=== PATIENT | female | born 1960 | race Caucasian/White ===

== ENCOUNTER 2019-03-23 08:10 | Day surgery (SDC) | payer OTHER, SELFPAY ==
[2019-03-20 08:11] VITALS: BMI 34.3
[2019-03-23] VITALS (12 sets, daily range): BP systolic 104–141; BP diastolic 56–73; PULSE 66–74; RESP 11–25; TEMP 36–36.6; O2SAT 92–98; BMI 34.3
--- NOTE | 2019-03-23 | PATH_ITS ---
[facility] Accession Number: [id number] . 01 Material submitted: . abdomen - ABDOMINAL WALL MASS . 01 Clinical history: . PATIENT IS DIABETIC . 01 Diagnosis: Abdominal Wall Mass, Excision: Subcutaneous deposits of amorphous acellular eosinophilic material, consistent with amyloid, see microscopic description. Negative for malignancy. MRV 03/27/2019 1721 Local . 01 Comment: Results were called to Dr. Nely Oswald's RN, on 03/27/2019 at 12:55 p.m. . As part of ongoing quality control microbiology supervisor, selected slides were reviewed by Dr. Daisy Gillis, who agrees with the interpretation. . 01 Electronically signed: . Indio Morrow MD, Pathologist NPI- [id number] . 01 Gross description: . Received in formalin, labeled abdominal wall mass, is a reyna-yellow rubbery fatty mass (14.5 x 9.8 x 4.5 cm) with overlying skin (10.7 x 6.5 cm). The mass cut surface is lobular and focally pale yellow and spongy adjacent to the skin. The skin is reyna-white with diffuse stretchmarks. The resection margin is inked black. [employer] tissue is submitted in cassettes A1-A9. ([id number]) /V 03/24/2019 1256 Local . 01 Microscopic: . Microscopic examination of the abdominal wall mass reveals extensive deposits within the subcutaneous tissue as well as around the blood vessels, of amorphous acellular eosinophilic material. There is multinucleated foreign body-type giant cell reaction around this material and rare aggregates of lymphocytes. Congo red special stain is performed (to support amyloid) and shows apple-green birefringence under polarized light. This result along with the morphology supports the diagnosis of amyloidosis. . There is no evidence of malignancy. . Further workup with subtyping of amyloid can be performed upon clinical request. . 01 Pathologist provided ICD-10: E85.9 . 01 CPT . 379616, [id number] Performed at: [address] [facility] [address], [place], [place] [id number] MD Jose L Watt MD Phone: [phone]
[2019-03-23] MEDS: LACTATED RINGERS 1,000 ML 42 ML IV ×2 (08:49→11:10)
[2019-03-23] MEDS: INSULIN REGULAR 100 UNIT/ML 3 ML VIAL 6 UNIT IV (09:01)
[2019-03-23] MEDS: INSULIN REGULAR 100 UNIT/ML 3 ML VIAL IV (09:59)
--- NOTE | 2019-03-23 10:11 | PM.PREOP ---
Pre-operative Note Interval Note History & Physical reviewed/Exam performed by Physician: Yes Changes to H&P: No H&P completed within 30 days and has changed as indicated here:: Glucose elevated. Has been given IV insulin.
[2019-03-23] MEDS: CEFAZOLIN 2 GM/100 ML FROZ.PIGGY IV (10:41)
[2019-03-23] MEDS: CEFAZOLIN 1 GM/50 ML FROZ.PIGGY IV (10:41)
--- NOTE | 2019-03-23 10:47 | SUR.OPER ---
Supine on padded OR bed, head on pillow, arms secured on padded arm boards at <90 degrees abduction, legs uncrossed, safety belt at thigh, tape over blanket over lower legs.
[2019-03-23] MEDS: BUPIVACAINE 0.5% (PF) VIAL 30 ML INJ (10:51)
--- NOTE | 2019-03-23 11:47 | PM.OP.1 ---
Operative Date/Time/Diagnoses Date of procedure: 03/23/19 Time of procedure: 11:39 Pre-op diagnosis: Abdominal wall mass Post-op diagnosis: same Procedure & Clinicians Procedure: Excision abdominal wall mass 14 cm in diameter with multilayer closure Same procedure as scheduled: Yes Indications: Large mass with symptoms abdominal wall. Imaging reveals this to be a mass in the subcu and not related to any hernia. Surgeon: Asher Mckay Click Yes if Unassisted: Yes Anesthesia Type: General Operative Notes Findings: Large mass appeared to be fatty in nature Closure Type: primary Specimen(s): other (Mass) Estimated Blood Loss (mL): 30 Blood products transfused: none Procedure in detail: The patient is placed supine on the operating room table and underwent general LMA anesthesia. She was prepped and draped in the usual fashion. Local anesthetic was infiltrated in field block fashion around this large mass. An elliptical incision was made overlying it. This is made transversely because of the mass was wider than longer. It was carried into the subcu. Using cautery the mass was excised. Was quite large when all the way down to the fascia. Meticulous hemostasis was achieved with cautery. The abdominal wall was closed in multiple layers. Deep subcu fat was closed with 2 0 Vicryl. Middle subcu fat was closed with the same material and a 3 0 Vicryl was used to close the fat under the dermis. The dermis was reapproximated with interrupted 4 0 Vicryl. The skin was closed with a running 3 0 nylon. Dressing was applied and the patient was awakened extubated and taken recovery room in good condition. There were no apparent complications. Complications: none Post-operative Condition: stable Disposition: PACU
[2019-03-23] MEDS: METFORMIN XR 500 MG TABLET 1000 MG PO (11:50)
--- NOTE | 2019-03-23 11:51 | SUR.PHASEI ---
verbal report of glucose to Dr. Randall ordered Metfomrin PO for patient now, given as ordered.
[2019-03-23] MEDS: HYDROCODONE/ACET 5/325 TABLET 1 TAB PO (13:09)
--- NOTE | 2019-03-23 19:20 | SUR.PHASEII ---
1309 late entry Pt. beginning to notice an increase in the incisional pain. Desired med: given after crackers and water. Pt. is dressed, stable, dressing CDI, ready for discharge. No questions/concerns. Pleasant, no nausea, no light-headedness.
== END 2019-03-23 13:12 | disposition home or self-care (01) ==
PROVIDERS: PCP Internal Medicine; Visit Provider Specialist
PROC: (CPT 22903; principal; 2019-03-23 09:45)
DX: E85.9 Amyloidosis, unspecified (principal); E11.9 Type 2 diabetes mellitus without complications; Z79.4 Long term (current) use of insulin; I10 Essential (primary) hypertension; E78.5 Hyperlipidemia, unspecified; D50.9 Iron deficiency anemia, unspecified; E66.9 Obesity, unspecified; Z68.38 Body mass index [BMI] 38.0-38.9, adult
CPT/HCPCS: 22903; J0690; J2405; J2704; J3010

== ENCOUNTER → 2019-04-16 13:48 | Outpatient (CLI) | payer OTHER, SELFPAY ==
--- NOTE | 2019-04-16 | DI.CT.S_ITS ---
PROCEDURE: CT CHEST WO CON INDICATIONS: Solitary pulmonary nodule TECHNIQUE: Noncontrast 2.0-2.5 mm thick sections acquired from the pulmonary apices to the posterior costophrenic angles. 7 mm thick axial MIP and 5 mm coronal and sagittal reformats were then acquired. A low radiation dose technique was utilized. COMPARISON: CT abdomen and pelvis 10/23/2018. FINDINGS: Image quality: Diagnostic, given the low radiation dose technique. Lungs and pleura: A few scattered pulmonary nodules. For example: -Right middle lobe 7 mm mean diameter, (3/163), previously 7 mm. -Left lower lobe measuring 6 x 6 mm, (3/23), previously 5 x 5 mm. -Left lower lobe juxtapleural measuring 4 mm, (3/206), previously 3 mm. A few additional pulmonary nodules measuring 3 mm or less. No new pulmonary nodule identified. A few calcified granuloma. No acute airspace opacity. No mass. Central airways are clear. Mediastinum: Heart size is normal. No pericardial effusion. No mediastinal adenopathy by size criteria. Thoracic aorta and central pulmonary arteries are normal in size. Esophagus is normal in caliber. No hiatal hernia. Bones and chest wall: No suspicious bony lesions. No vertebral body compression fractures. No axillary or supraclavicular adenopathy by size criteria. Subcentimeter hypodense right thyroid nodule, (2/1). A few punctate calcifications in the left thyroid gland. Abdomen: Visualized upper abdomen solid organs and bowel loops appear normal in the absence of contrast. Gallbladder is surgically absent. IMPRESSION: 1. Stable right middle lobe pulmonary nodule measuring 7 mm mean diameter. 2. Stable left lower lobe pulmonary nodule measuring [address] is recommended in 12 months. 3. Small right thyroid nodule and punctate left calcifications which may be associated with a thyroid nodule. Dedicated thyroid ultrasound should be considered. Fleischner Society criteria for SOLID lung nodule followup. Nodule size (mm)Low-risk patientHigh-risk patient<6 (single or multiple)No routine followup.Optional CT at 12 months. 6-8 (single or multiple)CT at 6-12 months, then optional CT at 18-24 mo.CT at 6-12 months, then CT at 18-24 months. >8 (single)CT at 3 months, PET-CT, or biopsy. Same as for low-risk pts. >8 (multiple)CT at 3-6 months, then optional CT at 18-24 mo.CT at 3-6 months, then CT at 18-24 months. Fleischner Society criteria for SUB-SOLID lung nodule followup. Solitary pure ground-glass nodules<6 mm (ground glass or part solid)No followup needed. 6 mm or larger (ground glass)CT at 6-12 months to confirm persistence, then CT every 2 years until 5 years.6 mm or larger (part solid)CT at 3-6 months to confirm persistence, then annual CT until 5 years if unchanged and solid component remains <6 mm. Multiple sub-solid nodules<6 mmCT at 3-6 months, then CT consider at 2 & 4 years for high risk patients. [address] at 3-6 months. Subsequent management based on most suspicious lesions. Recommendations do not apply to lung cancer screening, patients with immunosuppression, or patients with known primary cancer. Dictated by: Octavio River M.D. on 04/16/2019 at 15:07 Approved by: Octavio River M.D. on 04/16/2019 at 15:24
== END ==
PROVIDERS: PCP Internal Medicine; Visit Provider Internal Medicine
DX: R91.8 Other nonspecific abnormal finding of lung field (principal); E04.1 Nontoxic single thyroid nodule; Z90.49 Acquired absence of other specified parts of digestive tract
CPT/HCPCS: 71250

== ENCOUNTER → 2019-12-25 14:14 | Outpatient (CLI) | payer OTHER, SELFPAY ==
--- NOTE | 2019-12-25 | DI.CT.S_ITS ---
PROCEDURE: CT CHEST WO CON INDICATIONS: Solitary pulmonary nodule TECHNIQUE: Noncontrast 5 mm thick sections acquired from the pulmonary apices to the posterior costophrenic angles. 1 mm lung window, 5 mm thick coronal and sagittal and 7 mm axial MIP reformats were then acquired. For radiation dose reduction, the following was used: automated exposure control, adjustment of mA and/or kV according to patient size. COMPARISON: [facility], CT, CT CHEST WO CON, 04/16/2019, 14:09. FINDINGS: Image quality: Excellent. Lungs and pleura: No acute consolidation. Sub-5 mm multiple pulmonary nodules involving the superior segment of the right lower lobe and the right upper lobe appear grossly unchanged 6-7 mm right middle lobe nodule also unchanged. There is also a 5 mm nodules in the left lung base which is unchanged image 197/3. No pleural effusions or pneumothorax. Central and peripheral airways are patent and normal in caliber. Mediastinum: Heart size is normal. No pericardial effusion. No mediastinal adenopathy by size criteria. Thoracic aorta and central pulmonary arteries are normal in size. Esophagus is normal in caliber. No hiatal hernia. Bones and chest wall: No suspicious bony lesions. No vertebral body compression fractures. No axillary or supraclavicular adenopathy by size criteria. Abdomen: Visualized upper abdominal solid organs and bowel loops appear normal in the absence of contrast. IMPRESSION: Overall, grossly unchanged appearance of multiple pulmonary nodules measuring up to 6-7 mm since 04/16/19. Although encouraging, recommend continued surveillance for definitive assessment with followup chest CT in one year to exclude neoplasm/metastatic disease. Dictated by: Bobby Coronado M.D. on 12/25/2019 at 17:00 Approved by: Bobby Coronado M.D. on 12/25/2019 at 17:07
== END ==
PROVIDERS: PCP Internal Medicine; Referring Provider Internal Medicine; Visit Provider Internal Medicine
DX: R91.8 Other nonspecific abnormal finding of lung field (principal)
CPT/HCPCS: 71250

== ENCOUNTER → 2020-03-24 15:40 | Oncology outpatient (ONC) | payer OTHER, SELFPAY ==
[2019-06-01 10:21] VITALS: BP 146/73; PULSE 72; RESP 20; TEMP 36.8; O2SAT 95
--- NOTE | 2019-06-01 10:30 | ONC.CONS ---
History of Present Illness - Data of Consult Patient: new to practice Consult date: 06/01/19 Requesting Physician: Juanito Vera MD Primary Care Provider: Juanito Vera MD - Consult Narrative Reason for consult: Amyloidosis Narrative: Isa Gray is a 58 year old female. Patient has history of diabetes requiring insulin injection. About in 2017, she noticed a lump at the site of her insulin injection. She thought that the lump might be related to the insulin injection at the time. However the lump continued to grow and has gotten bigger and bigger. She said that the lump was located in the right lower abdomen below the umbilicus. She described the lump the size of a golf ball, was fluidy with a hard center, but no tenderness. She felt that the lump was in a location that is very inconvenient. She bumped multiple times. In Oct 2018, she bumped the site on a sharp edge of furniture and developed ulceration and drainage. She presented to [facility] ER where it was incised and drained. According to patient it was felt that there was something underneath. On 03/23/2019, patient underwent excision of the abdominal wall mass by Dr. Mckay. The mass measured 14 cm in diameter. Surprisingly, the pathology showed subcutaneous deposits of amorphous acellular eosinophilic material consistent with amyloid. Congo red special stain was performed and showed apple-green birefringence under the polarized light supporting the diagnosis of amyloidosis. The pathology was negative for malignancy. The patient therefore was referred to Hematology Oncology for further evaluation of amyloidosis. Patient herself denies any other lumps. She has kind of sluggish energy level. She was worried about the new diagnosis of amyloid. She reports no shortness of breath, no chest pain, no nausea, no vomiting, no diarrhea and no constipation. Her weight has been stable. No apparent leg swelling. CC: Malena Maldonado MD Patient reports pain?: No Home Medications and Allergies Home Medications Medication Instructions Recorded Confirmed Type amlodipine 10 mg tablet 10 mg PO DAILY 02/24/19 06/01/19 History carvedilol 25 mg tablet 37.5 mg PO BID 02/24/19 06/01/19 History fenofibrate nanocrystallized 145 145 mg PO QPM 02/24/19 06/01/19 History mg tablet furosemide 40 mg tablet 40 mg PO BID 02/24/19 06/01/19 History insulin aspart U-100 100 unit/mL 5 - 15 unit SUBCUT TID ml 02/24/19 06/01/19 History (3 mL) subcutaneous pen insulin degludec 100 unit/mL (3 55 unit SUBCUT BID ml 02/24/19 06/01/19 History mL) subcutaneous pen lisinopril 40 mg tablet 40 mg PO DAILY 02/24/19 06/01/19 History metformin 1,000 mg tablet,extended 1,000 mg PO BID 02/24/19 06/01/19 History release 24hr multivitamin with iron 1 tab PO DAILY 02/24/19 06/01/19 History niacin 500 mg tablet,extended 1,000 mg PO BEDTIME 02/24/19 06/01/19 History release 24 hr potassium chloride 20 mEq 20 meq PO TID 02/24/19 06/01/19 History tablet,extended release simvastatin 40 mg tablet 40 mg PO BEDTIME 02/24/19 06/01/19 History ferrous sulfate [iron] 325 mg PO DAILY 06/01/19 06/01/19 History Allergies Allergy/AdvReac Type Severity Reaction Status Date / Time No Known Drug Allergies Allergy Verified 04/09/19 15:32 Medical History - Medical, Surgical, Family History Medical History: Medical History (Last Updated 03/20/19 @ 08:23 by Jocelyn Pedro RN) Amenorrhea Anemia Diabetes Heart murmur HTN (hypertension) Hyperlipidemia Iron deficiency anemia Obesity Sinus drainage Surgical History: Surgical History (Last Updated 03/20/19 @ 08:23 by Jocelyn Pedro RN) Hx of appendectomy Onset Date: ~1987 Hx of cholecystectomy Onset Date: ~1987 Hx of tonsillectomy Onset Date: ~1972 Family History: Family History (Last Updated 06/01/19 @ 10:53 by Malena Maldonado MD) Father Heart disease Hypertension Cancer Mother Gallstones - Social History Smoking Status: Never smoker Substance Use Type: does not use Alcohol Intake: current (occasionally, once every 6 months) Review of Systems - Patient Self-Reported Symptoms SR Constitution: Night Sweats SR respiratory issues: Mucous SR Gastrointestinal issues: Heartburn SR Musculoskeletal issues: Cold hands or feet SR Hematologic issues: Bleeding/bruising SR Endocrine issues: Hot flashes All systems PM: reviewed and no additional remarkable complaints except as stated Exam Vital signs: Last Vital Signs Temp 98.3 F 11/25/19 10:21 Pulse 72 06/01/19 10:21 Resp 20 06/01/19 10:21 BP 146/73 H 06/01/19 10:21 Pulse Ox 95 06/01/19 10:21 - Constitutional positive no acute distress, positive morbidly obese, positive cooperative - Routine HEENT Exam Head: Present: normocephalic, atraumatic Eye: Present: EOMI, PERRL, normal accommodation. Absent: conjunctival icterus ENT: Present: mucous membranes moist - Routine Neck Exam Present: supple. Absent: lymphadenopathy, thyromegaly - Routine Chest/Breast/Axilla Exam Chest wall exam standard: Absent: tenderness Axillae: Absent: lymphadenopathy - Routine Respiratory Exam Present: Clear to auscultation bilaterally. Absent: wheezes - Routine Cardiovascular Exam Present: RRR, S1, S2. Absent: murmur, gallop, rubs - Routine Abdominal Exam Present: soft, wound (surgical wound just below the umbilicus has healed completely; At the right end of the wound, there is a palpable induration underneath measuring about 4x8 cm. ) Comments: protubertant and difficult to examine organomegaly. A transverse surgical incision just beneath the umbilicus noted well-healed. On the right side there is irregular induration underneath measuring about 5x7 cm, which was nontender. - Routine Extremities Exam Absent: edema - Routine Neurological Exam Present: alert, oriented X3, CN II-XII intact. Absent: sensory deficit, motor deficit - Routine Psychiatric Exam Present: normal affect Results - Labs 05/08/2019 UPEP: no M-spike SPEP: no M-spke Assessment and Plan (1) Amyloid disease Overview: 58 year old female with biopsy proven amyoidosis in the subcutaneous mass excised on 03/23/2019 Assessment: I reviewed the lab tests with the patient. Both urine protein electrophoresis and serum protein electrophoresis showed no evidence of M spike. She will need repeat tests and serum free light chain evaluation to determine if there is any monoclonal plasma population. If it is normal, she probably has organ-specific amyloidosis. Patient has planned to travel to [place] in June. I recommended that we obtain blood just before she leaves for [place] and comes back in July to review the results. Patient voiced understanding. Plan: 1. CBC, CMP, LDH, B2M, SPEP, SFLC on 06/15/2019 2. Echocardiogram as scheduled for this afternoon 3. RTC on 07/13/2019 to review the results.
[2019-06-15 17:17] LABS: Add Manual Diff / Slide Review NO; Basophils Absolute Auto 100 /uL (0-100); Basophils Percent Auto 0.9 % (0-2); Eosinophils Absolute Auto 600 /uL (0-450); Eosinophils Percent Auto 8.4 % (2-4); Hematocrit 40.4 % (36-46); Hemoglobin 13.7 g/dL (12.0-16.0); Lymphocytes Absolute Auto 2000 /uL (1100-4500); Lymphocytes Percent Auto 28.1 % (25-40); Mean Corpuscular HGB Conc 33.9 % (30-36); Mean Corpuscular Hemoglobin 29.2 PG (26-34); Mean Corpuscular Volume 86.1 fL (80-100); Monocytes Absolute Auto 600 /uL (0-900); Monocytes Percent Auto 8.7 % (3-14); Neutrophils Absolute Auto 3700 /uL (1500-7000); Neutrophils Percent Auto 53.9 % (50-75); Platelet Count 284 X10^3/uL (150-400); Red Cell Distribution Width 13.4 % (11.6-14.8)
[2019-06-15 17:38] LABS: Alanine Aminotransferase 41 IU/L (<35); Albumin 4.8 g/dL (3.5-5.0); Albumin Globulin Ratio 1.7 (1.0-2.8); Alkaline Phosphatase 76 U/L (38-126); Aspartate Aminotransferase 29 IU/L (14-36); BUN Creatinine Ratio 26.7 (6-22); Bilirubin Total 0.5 mg/dL (0.2-1.3); Blood Urea Nitrogen 16 mg/dL (7-17); Calcium 10.4 mg/dL (8.4-10.2); Carbon Dioxide 32 mmol/L (22-32); Chloride 97 mmol/L (98-107); Estimated Glomerular Filt Rate > 60.0 mL/min (>60); Globulin 2.9 g/dL (1.7-4.1); Glucose 224 mg/dL (70-100); HEMOLYSIS < 15 (0-50); Lactate Dehydrogenase 493 U/L (313-618); Potassium 3.7 mmol/L (3.4-5.1); Sodium 141 mmol/L (137-145); Total Protein 7.7 g/dL (6.3-8.2)
[2019-06-17 15:15] LABS: Free Kappa Light Chain 24.3 mg/L (3.3-19.4); Free Kappa/ Lambda Ratio 1.14 (0.26-1.65); Free Lambda 21.4 mg/L (5.7-26.3)
[2019-06-18 09:23] LABS: Beta-2-Microglobulin 2.21 mg/L (< 2.52)
[2019-06-19 22:00] LABS: Albumin 4.3 g/dL (3.8-4.8); Alpha 1 Globulin 0.3 g/dL (0.2-0.3); Alpha 2 Globulin 0.7 g/dL (0.5-0.9); Beta 1 Globulin 0.7 g/dL (0.4-0.6); Protein, Total 7.4 g/dL (6.1-8.1)
[2019-07-13 15:21] VITALS: BP 169/81; PULSE 81; RESP 18; TEMP 35.4; O2SAT 94
--- NOTE | 2019-07-13 15:32 | P.PNONC_ITS ---
PN -Subjective Interval history: ID/CC: Isa Gray is a 58 year old female with newly diagnosed amyloidosis History of Present Illness: Isa has diabetes requiring insulin injection at the abdomen skin. About in 2017, she noticed a lump at the site of her insulin injection. She thought that the lump might be related to the insulin injection at the time. However the lump continued to grow and has gotten bigger and bigger. She said that the lump was located in the right lower abdomen below the umbilicus. She described the lump the size of a golf ball, was fluidy with a hard center, but no tenderness. She felt that the lump was in a location that was very inconvenient. She bumped m ultiple times. In Oct 2018, she bumped the site on a sharp edge of furniture and developed ulceration and drainage. She presented to [facility] ER where it was incised and drained. According to patient it was felt that there was something underneath. On 03/23/2019, patient underwent excision of the abdominal wall mass by Dr. Mckay. The mass measured 14 cm in diameter. Surprisingly, the pathology showed subcutaneous deposits of amorphous acellular eosinophilic material consistent with amyloid. Congo red special stain was performed and showed apple-green birefringence under the polarized light supporting the diagnosis of amyloidosis. The pathology was negative for malignancy. Interim Events: The patient therefore was referred to Hematology Oncology for further evaluation of amyloidosis. I evaluated the patient on 06/01/2019 just before her planned vacation trip to [place]. Clinically, she did not have any symptoms except the abdominal wall discomfort. She returned from vacation and presents today to review the laboratory results. - Patient Self-Reported Symptoms SR Constitution: Night Sweats SR respiratory issues: Mucous SR Gastrointestinal issues: Heartburn SR Musculoskeletal issues: Cold hands or feet SR Hematologic issues: Bleeding/bruising SR Endocrine issues: Hot flashes - Additional ROS All systems PM: reviewed and no additional remarkable complaints except as stated Home Medications and Allergies Home Medications Medication Instructions Recorded Confirmed Type amlodipine 10 mg tablet 10 mg PO DAILY 02/24/19 07/13/19 History carvedilol 25 mg tablet 37.5 mg PO BID 02/24/19 07/13/19 History fenofibrate nanocrystallized 145 145 mg PO QPM 02/24/19 07/13/19 History mg tablet furosemide 40 mg tablet 40 mg PO BID 02/24/19 07/13/19 History insulin aspart U-100 100 unit/mL 5 - 15 unit SUBCUT TID ml 02/24/19 07/13/19 History (3 mL) subcutaneous pen insulin degludec 100 unit/mL (3 55 unit SUBCUT BID ml 02/24/19 07/13/19 History mL) subcutaneous pen lisinopril 40 mg tablet 40 mg PO DAILY 02/24/19 07/13/19 History metformin 1,000 mg tablet,extended 1,000 mg PO BID 02/24/19 07/13/19 History release 24hr multivitamin with iron 1 tab PO DAILY 02/24/19 07/13/19 History niacin 500 mg tablet,extended 1,000 mg PO BEDTIME 02/24/19 07/13/19 History release 24 hr potassium chloride 20 mEq 20 meq PO TID 02/24/19 07/13/19 History tablet,extended release simvastatin 40 mg tablet 40 mg PO BEDTIME 02/24/19 07/13/19 History ferrous sulfate [iron] 325 mg PO DAILY 06/01/19 07/13/19 History Allergies Allergy/AdvReac Type Severity Reaction Status Date / Time No Known Drug Allergies Allergy Verified 04/09/19 15:32 Exam Vital signs: Vital Signs Temp Pulse Resp BP Pulse Ox 07/13/19 15:21 95.7 F L 81 18 169/81 H 94 Intake and Output 07/12/19 07/13/19 07/13/19 23:59 07:59 15:59 Other: Weight 101.5 kg Patient Weight 07/13/19 23:59 Weight 101.5 kg Narrative: Gen: WDWN, morbid obese, NAD, pleasant and cooperative, here by herself HEENT: NCAT, EOMI, PERRLA, anicteric sclera. Neck: Supple, No palpable thyromegaly or lymphadenopathy. Respiratory: CTAB, no wheezes audible. No JVD Cardiovascular: RRR, S1 and S2 normal, no M/G/R. Abdomen: Soft, protuberant, and difficult to examine organomegaly; Again is a palpable heard induration to the right lower side of umbilicus measuring about 4x8 cm; there is another small induration about 1-2 cm to the left. Extremities: No LE pitting edema. Lymphatic: no palpable lymph nodes in the neck, axillae, or groins. Neurological: AOx3, CN II-XII grossly intact. No focal motor or sensory deficit. Psychiatric: Good judgment and insight; normal affect; normal thought process; cooperative, no depression, no anxiety. Results - Labs Laboratory Last Values WBC 7.0 X10^3/uL (4.5-11.0) 06/15/19 17:02 RBC 4.70 X10^6/uL (4.0-5.2) 06/15/19 17:02 Hgb 13.7 g/dL (12.0-16.0) 06/15/19 17:02 Hct 40.4 % (36-46) 06/15/19 17:02 MCV 86.1 fL (80-100) 06/15/19 17:02 MCH 29.2 PG (26-34) 06/15/19 17:02 MCHC 33.9 % (30-36) 06/15/19 17:02 RDW 13.4 % (11.6-14.8) 06/15/19 17:02 Plt Count 284 X10^3/uL (150-400) 06/15/19 17:02 Neut % (Auto) 53.9 % (50-75) 06/15/19 17:02 Lymph % (Auto) 28.1 % (25-40) 06/15/19 17:02 Trinity % (Auto) 8.7 % (3-14) 06/15/19 17:02 Eos % (Auto) 8.4 % (2-4) H 06/15/19 17:02 Baso % (Auto) 0.9 % (0-2) 06/15/19 17:02 Neut # (Auto) 3700 /uL (6789-8586) 06/15/19 17:02 Lymph # (Auto) 2000 /uL (1316-1538) 06/15/19 17:02 Trinity # (Auto) 600 /uL (0-900) 06/15/19 17:02 Eos # (Auto) 600 /uL (0-450) H 06/15/19 17:02 Baso # (Auto) 100 /uL (0-100) 06/15/19 17:02 Sodium 141 mmol/L (137-145) 06/15/19 17:02 Potassium 3.7 mmol/L (3.4-5.1) 06/15/19 17:02 Chloride 97 mmol/L (98-107) L 06/15/19 17:02 Carbon Dioxide 32 mmol/L (22-32) 06/15/19 17:02 BUN 16 mg/dL (7-17) 06/15/19 17:02 Creatinine 0.60 mg/dL (0.52-1.04) 06/15/19 17:02 Estimated GFR > 60.0 mL/min (>60) 06/15/19 17:02 BUN/Creatinine Ratio 26.7 (6-22) H 06/15/19 17:02 Glucose 224 mg/dL (70-100) H 06/15/19 17:02 Calcium 10.4 mg/dL (8.4-10.2) H 06/15/19 17:02 Total Bilirubin 0.5 mg/dL (0.2-1.3) 06/15/19 17:02 AST 29 IU/L (14-36) 06/15/19 17:02 ALT 41 IU/L (<35) H 06/15/19 17:02 Alkaline Phosphatase 76 U/L (38-126) 06/15/19 17:02 Lactate Dehydrogenase 493 U/L (313-618) 06/15/19 17:02 Serum Total Protein 7.4 g/dL (6.1-8.1) 06/15/19 17:02 Total Protein 7.7 g/dL (6.3-8.2) 06/15/19 17:02 Albumin 4.3 g/dL (3.8-4.8) 06/15/19 17:02 Albumin 4.8 g/dL (3.5-5.0) 06/15/19 17:02 Globulin 2.9 g/dL (1.7-4.1) 06/15/19 17:02 Albumin/Globulin Ratio 1.7 (1.0-2.8) 06/15/19 17:02 Kpxsq-5-Fxqpfmfdk 0.3 g/dL (0.2-0.3) 06/15/19 17:02 Bxnzm-6-Blrifwxyb 0.7 g/dL (0.5-0.9) 06/15/19 17:02 Oztl-4-Tyeptnzp 0.7 g/dL (0.4-0.6) H 06/15/19 17:02 Wcvb-8-Dwhzzyqf 0.4 g/dL (0.2-0.5) 06/15/19 17:02 Nyue-8-Wudxxdumqiyga 2.21 mg/L (< 2.52) 06/15/19 17:02 Gamma Globulins 1.0 g/dL (0.8-1.7) 06/15/19 17:02 Abnorm Protein Band 1 Not Reportable 06/15/19 17:02 Abnorm Protein Band 2 Not Reportable 06/15/19 17:02 Abn Gamma Band 3 Serum Not Reportable 06/15/19 17:02 PEP Comment See note 06/15/19 17:02 GUS & SPEP Interp See note 06/15/19 17:02 Free [place] Light Chains 24.3 mg/L (3.3-19.4) H 06/15/19 17:02 Free Lambda Light Chain 21.4 mg/L (5.7-26.3) 06/15/19 17:02 Free [place]/Lambda Ratio 1.14 (0.26-1.65) 06/15/19 17:02 Assessment and Plan (1) Amyloid disease Overview: 58 year old female with biopsy proven amyoidosis in the subcutaneous mass excised on 03/23/2019 Assessment: I reviewed the lab tests with the patient. The repeat tests showed no evidence of monoclonal protein in the serum. I told her that it is very unlikely she has multiple myeloma. As for her amyloidosis, I would recommend a second opinion at [facility]. Patient voiced understanding. Plan: 1. Referral to [facility] 2. RTC in one month for follow up visit.
--- NOTE | 2019-07-23 12:18 | ONC.SCHED ---
Referral to [facility] sent: per no PA needed: Ref#[id number]
--- NOTE | 2019-08-06 12:54 | ONC.SCHED ---
Patient has a second opinion scheduled with Dr. Dutch Wood III @ [facility] on 08/07/19.
[2019-09-03 16:25] VITALS: BP 154/78; PULSE 76; RESP 16; TEMP 35.8; O2SAT 92
--- NOTE | 2019-09-03 16:28 | ONC.PN ---
PN -Subjective Interval history: ID/CC: Isa Gray is a 58 year old female with newly diagnosed amyloidosis History of Present Illness: Isa has diabetes requiring insulin injection at the abdomen skin. About in 2017, she noticed a lump at the site of her insulin injection. She thought that the lump might be related to the insulin injection at the time. However the lump continued to grow and has gotten bigger and bigger. She said that the lump was located in the right lower abdomen below the umbilicus. She described the lump the size of a golf ball, was fluidy with a hard center, but no tenderness. She felt that the lump was in a location that was very inconvenient. She bumped multiple times. In Oct 2018, she bumped the site on a sharp edge of furniture and developed ulceration and drainage. She presented to [facility] ER where it was incised and drained. According to patient it was felt that there was something underneath. On 03/23/2019, patient underwent excision of the abdominal wall mass by Dr. Mckay. The mass measured 14 cm in diameter. Surprisingly, the pathology showed subcutaneous deposits of amorphous acellular eosinophilic material consistent with amyloid. [place] red special stain was performed and showed apple-green birefringence under the polarized light supporting the diagnosis of amyloidosis. The pathology was negative for malignancy. Interim Events: On 08/07/2019, patient was evaluated at [facility]. Dr. Wood thought that This appears to be a classic case of localized amyloidosis due to insulin injection. This is well known and well described in the literature. There is no evidence that the patient has a monoclonal gammopathy. Technically be did send the specimen for mass spectrometry and will follow-up on that. Dr. Wood said that there is no treatment for localized amyloidosis except for symptomatic which she has had with the resection. She is recommended to rotate the insulin injection. Otherwise the patient does not have a form of amyloidosis that would require chemotherapy. Clinically patient does not have any new signs or symptoms to the surgical wound has completely healed. No pain. - Patient Self-Reported Symptoms SR Constitution: Night Sweats SR respiratory issues: Mucous SR Gastrointestinal issues: Heartburn SR Musculoskeletal issues: Cold hands or feet SR Hematologic issues: Bleeding/bruising SR Endocrine issues: Hot flashes - Additional ROS All systems PM: reviewed and no additional remarkable complaints except as stated Home Medications and Allergies Home Medications Medication Instructions Recorded Confirmed Type amlodipine 10 mg tablet 10 mg PO DAILY 02/24/19 09/03/19 History carvedilol 25 mg tablet 37.5 mg PO BID 02/24/19 09/03/19 History fenofibrate nanocrystallized 145 145 mg PO QPM 02/24/19 09/03/19 History mg tablet furosemide 40 mg tablet 40 mg PO BID 02/24/19 09/03/19 History insulin aspart U-100 100 unit/mL 5 - 15 unit SUBCUT TID ml 02/24/19 09/03/19 History (3 mL) subcutaneous pen insulin degludec 100 unit/mL (3 55 unit SUBCUT BID ml 02/24/19 09/03/19 History mL) subcutaneous pen lisinopril 40 mg tablet 40 mg PO DAILY 02/24/19 09/03/19 History metformin 1,000 mg tablet,extended 1,000 mg PO BID 02/24/19 09/03/19 History release 24hr multivitamin with iron 1 tab PO DAILY 02/24/19 09/03/19 History niacin 500 mg tablet,extended 1,000 mg PO BEDTIME 02/24/19 09/03/19 History release 24 hr potassium chloride 20 mEq 20 meq PO TID 02/24/19 09/03/19 History tablet,extended release simvastatin 40 mg tablet 40 mg PO BEDTIME 02/24/19 09/03/19 History ferrous sulfate [iron] 325 mg PO DAILY 06/01/19 09/03/19 History Allergies Allergy/AdvReac Type Severity Reaction Status Date / Time No Known Drug Allergies Allergy Verified 04/09/19 15:32 Exam Vital signs: Vital Signs Temp Pulse Resp BP Pulse Ox 09/03/19 16:25 96.4 F L 76 16 154/78 H 92 Intake and Output 09/03/19 09/03/19 09/03/19 07:59 15:59 23:59 Other: Weight 101 kg Patient Weight 09/03/19 23:59 Weight 101 kg Narrative: ECOG 1 Gen: WDWN, morbid obese, NAD, pleasant and cooperative, here by herself HEENT: NCAT, EOMI, PERRLA, anicteric sclera. Neck: Supple, No palpable thyromegaly or lymphadenopathy. Respiratory: CTAB, no wheezes audible. No JVD Cardiovascular: RRR, S1 and S2 normal, no M/G/R. Abdomen: Soft, protuberant, and difficult to examine organomegaly; The hard induration to the right lower side of umbilicus measuring about 4x8 cm again noted. There is another small induration about 1-2 cm to the left. Extremities: No LE pitting edema. Lymphatic: no palpable lymph nodes in the neck, axillae, or groins. Neurological: AOx3, CN II-XII grossly intact. No focal motor or sensory deficit. Psychiatric: Good judgment and insight; normal affect; normal thought process; no depression, no anxiety. Results - Labs Laboratory Last Values WBC 7.0 X10^3/uL (4.5-11.0) 06/15/19 17:02 RBC 4.70 X10^6/uL (4.0-5.2) 06/15/19 17:02 Hgb 13.7 g/dL (12.0-16.0) 06/15/19 17:02 Hct 40.4 % (36-46) 06/15/19 17:02 MCV 86.1 fL (80-100) 06/15/19 17:02 MCH 29.2 PG (26-34) 06/15/19 17:02 MCHC 33.9 % (30-36) 06/15/19 17:02 RDW 13.4 % (11.6-14.8) 06/15/19 17:02 Plt Count 284 X10^3/uL (150-400) 06/15/19 17:02 Neut % (Auto) 53.9 % (50-75) 06/15/19 17:02 Lymph % (Auto) 28.1 % (25-40) 06/15/19 17:02 [place] % (Auto) 8.7 % (3-14) 06/15/19 17:02 Eos % (Auto) 8.4 % (2-4) H 06/15/19 17:02 Baso % (Auto) 0.9 % (0-2) 06/15/19 17:02 Neut # (Auto) 3700 /uL (4840-5436) 06/15/19 17:02 Lymph # (Auto) 2000 /uL (8203-0620) 06/15/19 17:02 [place] # (Auto) 600 /uL (0-900) 06/15/19 17:02 Eos # (Auto) 600 /uL (0-450) H 06/15/19 17:02 Baso # (Auto) 100 /uL (0-100) 06/15/19 17:02 Sodium 141 mmol/L (137-145) 06/15/19 17:02 Potassium 3.7 mmol/L (3.4-5.1) 06/15/19 17:02 Chloride 97 mmol/L (98-107) L 06/15/19 17:02 Carbon Dioxide 32 mmol/L (22-32) 06/15/19 17:02 BUN 16 mg/dL (7-17) 06/15/19 17:02 Creatinine 0.60 mg/dL (0.52-1.04) 06/15/19 17:02 Estimated GFR > 60.0 mL/min (>60) 06/15/19 17:02 BUN/Creatinine Ratio 26.7 (6-22) H 06/15/19 17:02 Glucose 224 mg/dL (70-100) H 06/15/19 17:02 Calcium 10.4 mg/dL (8.4-10.2) H 06/15/19 17:02 Total Bilirubin 0.5 mg/dL (0.2-1.3) 06/15/19 17:02 AST 29 IU/L (14-36) 06/15/19 17:02 ALT 41 IU/L (<35) H 06/15/19 17:02 Alkaline Phosphatase 76 U/L (38-126) 06/15/19 17:02 Lactate Dehydrogenase 493 U/L (313-618) 06/15/19 17:02 Serum Total Protein 7.4 g/dL (6.1-8.1) 06/15/19 17:02 Total Protein 7.7 g/dL (6.3-8.2) 06/15/19 17:02 Albumin 4.3 g/dL (3.8-4.8) 06/15/19 17:02 Albumin 4.8 g/dL (3.5-5.0) 06/15/19 17:02 Globulin 2.9 g/dL (1.7-4.1) 06/15/19 17:02 Albumin/Globulin Ratio 1.7 (1.0-2.8) 06/15/19 17:02 Swgjd-1-Rstrifqtf 0.3 g/dL (0.2-0.3) 06/15/19 17:02 Cobse-5-Cyilaziyk 0.7 g/dL (0.5-0.9) 06/15/19 17:02 Dxgy-7-Ekaxgtcz 0.7 g/dL (0.4-0.6) H 06/15/19 17:02 Lmnf-6-Lqwsqtsp 0.4 g/dL (0.2-0.5) 06/15/19 17:02 Xubq-0-Agbkyfiiabghw 2.21 mg/L (< 2.52) 06/15/19 17:02 Gamma Globulins 1.0 g/dL (0.8-1.7) 06/15/19 17:02 Abnorm Protein Band 1 Not Reportable 06/15/19 17:02 Abnorm Protein Band 2 Not Reportable 06/15/19 17:02 Abn Gamma Band 3 Serum Not Reportable 06/15/19 17:02 PEP Comment See note 06/15/19 17:02 GUS & SPEP Interp See note 06/15/19 17:02 Free [place] Light Chains 24.3 mg/L (3.3-19.4) H 06/15/19 17:02 Free Lambda Light Chain 21.4 mg/L (5.7-26.3) 06/15/19 17:02 Free [place]/Lambda Ratio 1.14 (0.26-1.65) 06/15/19 17:02 Assessment and Plan (1) Amyloid disease Overview: 58 year old female with biopsy proven amyoidosis in the subcutaneous mass excised on 03/23/2019. It was classic localized amyloidosis associated with use of insulin injection. Assessment: We discussed about the recommendations from Dr. Wood of [facility]. Patient understood that it is related to insert knee injection chronically in [facility] area. Patient understood to rotate the insulin injection in the future. No systemic therapy is indicated. I talked with her that I will have her come back in about 6 months as a follow-up. Plan: RTC in six month for follow up visit, CBC, CMP, B2M, LDH, SFLC, SPEP
[2020-03-21 17:34] LABS: Add Manual Diff / Slide Review NO; Basophils Absolute Auto 0 /uL (0-100); Basophils Percent Auto 0.6 % (0-2); Eosinophils Absolute Auto 400 /uL (0-450); Eosinophils Percent Auto 6.4 % (2-4); Hematocrit 36.2 % (36-46); Hemoglobin 12.2 g/dL (12.0-16.0); Lymphocytes Absolute Auto 1400 /uL (1100-4500); Lymphocytes Percent Auto 23.1 % (25-40); Mean Corpuscular HGB Conc 33.8 % (30-36); Mean Corpuscular Hemoglobin 29.6 PG (26-34); Mean Corpuscular Volume 87.6 fL (80-100); Monocytes Absolute Auto 500 /uL (0-900); Monocytes Percent Auto 8.9 % (3-14); Neutrophils Absolute Auto 3600 /uL (1500-7000); Platelet Count 227 X10^3/uL (150-400); Red Blood Cell Count 4.13 X10^6/uL (4.0-5.2); Red Cell Distribution Width 13.5 % (11.6-14.8); White Blood Cell Count 5.9 X10^3/uL (4.5-11.0)
[2020-03-21 18:08] LABS: Alanine Aminotransferase 35 IU/L (<35); Albumin 4.1 g/dL (3.5-5.0); Albumin Globulin Ratio 1.5 (1.0-2.8); Alkaline Phosphatase 50 U/L (38-126); Aspartate Aminotransferase 29 IU/L (14-36); BUN Creatinine Ratio 20.8 (6-22); Bilirubin Total 0.3 mg/dL (0.2-1.3); Blood Urea Nitrogen 16 mg/dL (7-17); Carbon Dioxide 29 mmol/L (22-32); Chloride 99 mmol/L (98-107); Estimated Glomerular Filt Rate > 60.0 mL/min (>60); Globulin 2.7 g/dL (1.7-4.1); Glucose 243 mg/dL (70-100); HEMOLYSIS < 15 (0-50); Lactate Dehydrogenase 413 U/L (313-618); Potassium 3.4 mmol/L (3.4-5.1); Sodium 139 mmol/L (137-145); Total Protein 6.8 g/dL (6.3-8.2)
[2020-03-22 21:36] LABS: Free Kappa Lt Chains, Serum 27.4 mg/L (3.3-19.4); Free Lambda Lt Chains,Serum 23.3 mg/L (5.7-26.3)
[2020-03-23 20:52] LABS: Albumin 3.7 g/dL (2.9-4.4); Alpha 1 Globulin 0.2 g/dL (0.0-0.4); Alpha 2 Globulin 0.8 g/dL (0.4-1.0); Gamma Globulin 0.7 g/dL (0.4-1.8); Protein, Total 6.4 g/dL (6.0-8.5)
[2020-03-24 09:31] LABS: Beta-2-Microglobulin 2.2 mg/L (0.6-2.4)
[2020-03-24 16:05] VITALS: BP 156/73; PULSE 76; RESP 16; TEMP 36.4; O2SAT 95
--- NOTE | 2020-03-24 16:07 | PC.NURSE ---
HYPERTENSION Pt's BP in clinic today was 156/73. Pt stated that she is a bit anxious about her appointment and that her systolic BP is normally ~120's at PCP appointments.
--- NOTE | 2020-03-24 16:11 | P.PNONC_ITS ---
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 History of Present Illness: Isa has diabetes requiring insulin injection at the abdomen skin. About in 2017, she noticed a lump at the site of her insulin injection. She thought that the lump might be related to the insulin injection at the time. However the lump continued to grow and has gotten bigger and bigger. She said that the lump was located in the right lower abdomen below the umbilicus. She described the lump the size of a golf ball, was fluidy with a hard center, but no tenderness. She felt that the lump was in a location that was very inconvenient. She bumped multiple times. In Oct 2018, she bumped the site on a sharp edge of furniture and developed ulceration and drainage. She presented to [facility] ER where it was incised and drained. According to patient it was felt that there was something underneath. On 03/23/2019, patient underwent excision of the abdominal wall mass by Dr. Mckay. The mass measured 14 cm in diameter. Surprisingly, the pathology showed subcutaneous deposits of amorphous acellular eosinophilic material consistent with amyloid. [place] red special stain was performed and showed apple-green birefringence under the polarized light supporting the diagnosis of amyloidosis. The pathology was negative for malignancy. On 08/07/2019, patient was evaluated at [facility]. Dr. Wood thought that This appears to be a classic case of localized amyloidosis due to insulin injection. This is well known and well described in the literature. There is no evidence that the patient has a monoclonal gammopathy. Mass spectrometry result from the [facility] reports insulin type amyloid. Dr. Wood said that there is no treatment for localized amyloidosis except for symptomatic which she has had with the resection. She is recommended to rotate the insulin injection. Otherwise the patient does not have a form of amyloidosis that would require chemotherapy. Interim Events: Clinically patient does not have any new signs or symptoms. She presents today for scheduled follow up visit. Since her previous visit, she is now rotating insulin injection. - Patient Self-Reported Symptoms SR Constitution: Night Sweats SR respiratory issues: Mucous SR Gastrointestinal issues: Heartburn SR Musculoskeletal issues: Cold hands or feet SR Hematologic issues: Bleeding/bruising SR Endocrine issues: Hot flashes - Additional ROS All systems PM: reviewed and no additional remarkable complaints except as stated Home Medications and Allergies Home Medications Medication Instructions Recorded Confirmed Type amlodipine 10 mg tablet 10 mg PO DAILY 02/24/19 09/03/19 History carvedilol 25 mg tablet 37.5 mg PO BID 02/24/19 09/03/19 History fenofibrate nanocrystallized 145 145 mg PO QPM 02/24/19 09/03/19 History mg tablet furosemide 40 mg tablet 40 mg PO BID 02/24/19 09/03/19 History insulin aspart U-100 100 unit/mL 5 - 15 unit SUBCUT TID ml 02/24/19 09/03/19 History (3 mL) subcutaneous pen insulin degludec 100 unit/mL (3 45 unit SUBCUT BID ml 02/24/19 03/24/20 History mL) subcutaneous pen lisinopril 40 mg tablet 40 mg PO DAILY 02/24/19 09/03/19 History metformin 1,000 mg tablet,extended 1,000 mg PO BID 02/24/19 09/03/19 History release 24hr multivitamin with iron 1 tab PO DAILY 02/24/19 09/03/19 History niacin 500 mg tablet,extended 1,000 mg PO BEDTIME 02/24/19 09/03/19 History release 24 hr potassium chloride 20 mEq 20 meq PO TID 02/24/19 09/03/19 History tablet,extended release simvastatin 40 mg tablet 40 mg PO BEDTIME 02/24/19 09/03/19 History ferrous sulfate [iron] 325 mg PO DAILY 06/01/19 09/03/19 History Allergies Allergy/AdvReac Type Severity Reaction Status Date / Time No Known Drug Allergies Allergy Verified 04/09/19 15:32 Exam Vital signs: Last Vital Signs Temp 97.5 F L 03/24/20 16:05 Pulse 76 03/24/20 16:05 Resp 16 03/24/20 16:05 BP 156/73 H 03/24/20 16:05 Pulse Ox 95 03/24/20 16:05 Narrative: ECOG 1 Gen: WDWN, morbid obese, NAD, pleasant and cooperative, here by herself HEENT: NCAT, EOMI, PERRLA, anicteric sclera. Respiratory: No use of accessary muscle. Cardiovascular: RRR, S1 and S2 normal, no M/G/R. Abdomen: Soft, protuberant, and difficult to examine organomegaly; . Extremities: No LE pitting edema. Neurological: AOx3, CN II-XII grossly intact. No focal motor or sensory deficit. Psychiatric: Good judgment and insight; normal affect; normal thought process; no depression, no anxiety. Results - Labs Laboratory Last Values WBC 5.9 X10^3/uL (4.5-11.0) 03/21/20 17:08 RBC 4.13 X10^6/uL (4.0-5.2) 03/21/20 17:08 Hgb 12.2 g/dL (12.0-16.0) 03/21/20 17:08 Hct 36.2 % (36-46) 03/21/20 17:08 MCV 87.6 fL (80-100) 03/21/20 17:08 MCH 29.6 PG (26-34) 03/21/20 17:08 MCHC 33.8 % (30-36) 03/21/20 17:08 RDW 13.5 % (11.6-14.8) 03/21/20 17:08 Plt Count 227 X10^3/uL (150-400) 03/21/20 17:08 Neut % (Auto) 61.0 % (50-75) 03/21/20 17:08 Lymph % (Auto) 23.1 % (25-40) L 03/21/20 17:08 [place] % (Auto) 8.9 % (3-14) 03/21/20 17:08 Eos % (Auto) 6.4 % (2-4) H 03/21/20 17:08 Baso % (Auto) 0.6 % (0-2) 03/21/20 17:08 Neut # (Auto) 3600 /uL (7067-6361) 03/21/20 17:08 Lymph # (Auto) 1400 /uL (8127-6519) 03/21/20 17:08 [place] # (Auto) 500 /uL (0-900) 03/21/20 17:08 Eos # (Auto) 400 /uL (0-450) 03/21/20 17:08 Baso # (Auto) 0 /uL (0-100) 03/21/20 17:08 Sodium 139 mmol/L (137-145) 03/21/20 17:08 Potassium 3.4 mmol/L (3.4-5.1) 03/21/20 17:08 Chloride 99 mmol/L (98-107) 03/21/20 17:08 Carbon Dioxide 29 mmol/L (22-32) 03/21/20 17:08 BUN 16 mg/dL (7-17) 03/21/20 17:08 Creatinine 0.77 mg/dL (0.52-1.04) 03/21/20 17:08 Estimated GFR > 60.0 mL/min (>60) 03/21/20 17:08 BUN/Creatinine Ratio 20.8 (6-22) 03/21/20 17:08 Glucose 243 mg/dL (70-100) H 03/21/20 17:08 Calcium 10.0 mg/dL (8.4-10.2) 03/21/20 17:08 Total Bilirubin 0.3 mg/dL (0.2-1.3) 03/21/20 17:08 AST 29 IU/L (14-36) 03/21/20 17:08 ALT 35 IU/L (<35) H 03/21/20 17:08 Alkaline Phosphatase 50 U/L (38-126) 03/21/20 17:08 Lactate Dehydrogenase 413 U/L (313-618) 03/21/20 17:08 Vouf-0-Zmmxdsgk 0.4 g/dL (0.2-0.5) 06/15/19 17:02 Serum Total Protein 6.4 g/dL (6.0-8.5) 03/21/20 17:08 Total Protein 6.8 g/dL (6.3-8.2) 03/21/20 17:08 Albumin 3.7 g/dL (2.9-4.4) 03/21/20 17:08 Albumin 4.1 g/dL (3.5-5.0) 03/21/20 17:08 Globulin 2.7 g/dL (1.7-4.1) 03/21/20 17:08 Albumin/Globulin Ratio 1.4 (0.7-1.7) 03/21/20 17:08 Albumin/Globulin Ratio 1.5 (1.0-2.8) 03/21/20 17:08 Gjafw-3-Tyddyejlc 0.2 g/dL (0.0-0.4) 03/21/20 17:08 Abnorm Protein Band 1 Not Reportable 06/15/19 17:02 Abnorm Protein Band 2 Not Reportable 06/15/19 17:02 Dturq-5-Elqamhhjc 0.8 g/dL (0.4-1.0) 03/21/20 17:08 Abn Gamma Band 3 Serum Not Reportable 06/15/19 17:02 Wpgq-1-Dxhpyioz 1.0 g/dL (0.7-1.3) 03/21/20 17:08 Wpxp-6-Mjcnsazaptcxk 2.2 mg/L (0.6-2.4) 03/21/20 17:08 Gamma Globulins 0.7 g/dL (0.4-1.8) 03/21/20 17:08 Gamma Glob/Tot Protein 2.7 g/dL (2.2-3.9) 03/21/20 17:08 PEP Comment Comment (.) 03/21/20 17:08 PEP Comment 4c Comment (.) 03/21/20 17:08 GUS & SPEP Interp See note 06/15/19 17:02 GUS M-Santosh Not observed g/dL (Not Observed) 03/21/20 17:08 Free [place]/Lambda Ratio 1.14 (0.26-1.65) 06/15/19 17:02 Free [place] Light Chains 27.4 mg/L (3.3-19.4) H 03/21/20 17:08 Free Lambda Light Chain 23.3 mg/L (5.7-26.3) 03/21/20 17:08 Fr Lambda/[place] Ratio 1.18 (0.26-1.65) 03/21/20 17:08 Assessment and Plan (1) Amyloid disease Overview: 59 year old female with biopsy proven amyloidosis in the subcutaneous mass excised on 03/23/2019. It was classic localized amyloidosis associated with use of insulin injection. Assessment: Today I reviewed the laboratory test results with the patient. CBCs and CMPs are unremarkable. More importantly, serum protein electrophoresis showed no evidence of monoclonal protein. Serum free light chain ratio was normal. I explained to the patient that she has a localized abdominal wall insulin type amyloidosis based on [facility] consult opinion. No systemic amyloidosis or systemic monoclonal gammopathy of unknown significance was identified. I would recommend that patient continue follow-up with her primary care provider and come back to see us on an as needed basis. Patient voiced understanding. Plan: RTC [place]
== END ==
PROVIDERS: PCP Internal Medicine; Visit Provider Internal Medicine Hematology & Oncology
DX: E85.4 Organ-limited amyloidosis (principal); L99 Other disorders of skin and subcutaneous tissue in diseases classified elsewhere; E11.9 Type 2 diabetes mellitus without complications; Z79.4 Long term (current) use of insulin
CPT/HCPCS: 36415; 80053; 82232; 83615; 83883; 84155; 84165; 85025; 99204; 99214

== ENCOUNTER → 2021-03-31 07:59 | Outpatient (CLI) | payer OTHER, SELFPAY ==
--- NOTE | 2021-03-31 08:05 | DI.CT.S_ITS ---
PROCEDURE: CT CHEST WO CON INDICATIONS: Solitary pulmonary nodule TECHNIQUE: Noncontrast 2.0-2.5 mm thick sections acquired from the pulmonary apices to the posterior costophrenic angles. 7 mm thick axial MIP and 5 mm coronal and sagittal reformats were then acquired. A low radiation dose technique was utilized. COMPARISON: [facility], CT, CT CHEST WO CON, 04/16/2019, 14:09. [facility], CT, CT CHEST WO CON, 12/25/2019, 14:39. FINDINGS: Image quality: Diagnostic, given the low radiation dose technique. Lungs and pleura: Several overall stable pulmonary nodules compared to 04/16/2019. For example: -right middle lobe 0.7 cm mean diameter, (3/168), previously 0.7 cm. -right lower lobe 0.4 cm, (3/138), previously 0.3 cm. -left lower lobe 0.3 cm, (3/195), previously 0.6 cm. Slightly decreased. -no new or enlarging pulmonary nodules. Calcified granuloma. No acute airspace opacity. The airways are clear. No pleural effusion. Mediastinum: Heart size is normal. No pericardial effusion. No mediastinal adenopathy by size criteria. Thoracic aorta and central pulmonary arteries are normal in size. Esophagus is normal in caliber. No hiatal hernia. Bones and chest wall: No suspicious bony lesions. No vertebral body compression fractures. No axillary or supraclavicular adenopathy by size criteria. Subcentimeter right thyroid nodule is again seen. Punctate calcification in the left thyroid gland. Abdomen: Visualized upper abdomen solid organs and bowel loops appear normal in the absence of contrast. IMPRESSION: 1. No new or enlarging pulmonary nodules. 2. Right middle lobe pulmonary nodule measuring 0.7 cm mean diameter is unchanged compared to April 2019. 3. No enlarged lymph nodes seen. Fleischner Society criteria for SOLID lung nodule followup. Nodule size (mm)Low-risk patientHigh-risk patient<6 (single or multiple)No routine followup.Optional CT at 12 months. 6-8 (single or multiple)CT at 6-12 months, then optional CT at 18-24 mo.CT at 6-12 months, then CT at 18-24 months. >8 (single)CT at 3 months, PET-CT, or biopsy. Same as for low-risk pts. >8 (multiple)CT at 3-6 months, then optional CT at 18-24 mo.CT at 3-6 months, then CT at 18-24 months. Fleischner Society criteria for SUB-SOLID lung nodule followup. Solitary pure ground-glass nodules<6 mm (ground glass or part solid)No followup needed. 6 mm or larger (ground glass)CT at 6-12 months to confirm persistence, then CT every 2 years until 5 years.6 mm or larger (part solid)CT at 3-6 months to confirm persistence, then annual CT until 5 years if unchanged and solid component remains <6 mm. Multiple sub-solid nodules<6 mmCT at 3-6 months, then CT consider at 2 & 4 years for high risk patients. [address] at 3-6 months. Subsequent management based on most suspicious lesions. Recommendations do not apply to lung cancer screening, patients with immunosuppression, or patients with known primary cancer. Dictated by: Octavio River M.D. on 03/31/2021 at 9:10 Approved by: Octavio River M.D. on 03/31/2021 at 9:21
== END ==
PROVIDERS: PCP Internal Medicine; Referring Provider Internal Medicine; Visit Provider Internal Medicine
DX: R91.1 Solitary pulmonary nodule (principal)
CPT/HCPCS: 71250

== ENCOUNTER → 2022-02-06 15:24 | Outpatient (CLI) | payer BC, SELFPAY ==
--- NOTE | 2022-02-06 | DI.CT.S_ITS ---
PROCEDURE: CT CHEST WO CON INDICATIONS: Solitary pulmonary nodule TECHNIQUE: Noncontrast 5 mm thick sections acquired from the pulmonary apices to the posterior costophrenic angles. 1 mm lung window, 5 mm thick coronal and sagittal and 7 mm axial MIP reformats were then acquired. For radiation dose reduction, the following was used: automated exposure control, adjustment of mA and/or kV according to patient size. COMPARISON: [facility], CT, CT CHEST WO CON, 04/16/2019, 14:09. [facility], CT, CT CHEST WO CON, 03/31/2021, 8:05. FINDINGS: Image quality: Excellent Lungs and pleura: unchanged, numerous pulmonary nodules. Index nodule in the right middle lobe measuring 7-8 mm (3/181) has been stable since at least 2018. No pleural effusion or pneumothorax. Mediastinum: Heart size is normal. No pericardial effusion. No mediastinal adenopathy by size criteria. Thoracic aorta and central pulmonary arteries are normal in size. Esophagus is normal in caliber. No hiatal hernia. Bones and chest wall: No suspicious bony lesions. No vertebral body compression fractures. No axillary or supraclavicular adenopathy by size criteria. Thyroid gland hypoattenuating right thyroid nodule again seen. Abdomen: Small hiatal hernia and distal esophageal wall thickening and fluid, possibly related to reflux. Abdomen is otherwise unremarkable on noncontrast imaging. IMPRESSION: Numerous stable pulmonary nodules compared to prior imaging dated 03/31/2021. 7-8 mm index nodule in the right middle lobe was seen dating back to 2019. Other stable/incidental findings above. Dictated by: Augusto Verma M.D. on 02/06/2022 at 16:27 Approved by: Augusto Verma M.D. on 02/06/2022 at 16:35
== END ==
PROVIDERS: PCP Internal Medicine; Referring Provider Internal Medicine; Visit Provider Internal Medicine
DX: R91.8 Other nonspecific abnormal finding of lung field (principal)
CPT/HCPCS: 71250

== ENCOUNTER → 2022-12-26 14:12 | Outpatient (CLI) | payer BC, SELFPAY ==
--- NOTE | 2022-12-26 | DI.CT.S_ITS ---
PROCEDURE: CT CHEST WO CON INDICATIONS: LUNG NODULE TECHNIQUE: Noncontrast 2.0-2.5 mm thick sections acquired from the pulmonary apices to the posterior costophrenic angles. 7 mm thick axial MIP and 5 mm coronal and sagittal reformats were then acquired. A low radiation dose technique was utilized. COMPARISON: [facility], CT, CT CHEST WO CON, 04/16/2019, 14:09. [facility], CT, CT CHEST WO CON, 03/31/2021, 8:05. [facility], CT, CT CHEST WO CON, 02/06/2022, 15:30. FINDINGS: Image quality: Diagnostic, given the low radiation dose technique. Lungs and pleura: Multiple lung nodules are seen bilaterally, unchanged in size. Reference nodules are listed in the following: Nodule 1: 7 mm; right middle lobe; series 3, image 171. Nodule 2: 5 mm; right upper lobe; series 3, image 110. Nodule 3: 4 mm; right lower lobe; series 3, image 148. Nodule 4: 4 mm; right lower lobe; series 3, image 147. Mediastinum: Heart size is normal. No pericardial effusion. No mediastinal adenopathy by size criteria. Thoracic aorta and central pulmonary arteries are normal in size. Esophagus is normal in caliber. Small hiatal hernia. Bones and chest wall: No suspicious bony lesions. No vertebral body compression fractures. No axillary or supraclavicular adenopathy by size criteria. There is a 1.2 cm nodule in the posterior right thyroid lobe. Abdomen: Visualized upper abdomen solid organs and bowel loops appear normal in the absence of contrast. Cholecystectomy. IMPRESSION: 1. Stable pulmonary nodules bilaterally. 2. A 1.2 cm nodule in the posterior right thyroid lobe. Recommend thyroid ultrasound for follow-up. 3. Small hiatal hernia. Fleischner Society criteria for SOLID lung nodule followup. Nodule size (mm)Low-risk patientHigh-risk patient<6 (single or multiple)No routine followup.Optional CT at 12 months. 6-8 (single or multiple)CT at 6-12 months, then optional CT at 18-24 mo.CT at 6-12 months, then CT at 18-24 months. >8 (single)CT at 3 months, PET-CT, or biopsy. Same as for low-risk pts. >8 (multiple)CT at 3-6 months, then optional CT at 18-24 mo.CT at 3-6 months, then CT at 18-24 months. Recommendations do not apply to lung cancer screening, patients with immunosuppression, or patients with known primary cancer. Dictated by: Gavin Canales M.D. on 12/26/2022 at 17:18 Approved by: Gavin Canales M.D. on 12/26/2022 at 18:57
== END ==
PROVIDERS: PCP Physician Assistant; Referring Provider Physician Assistant; Visit Provider Physician Assistant
DX: R91.8 Other nonspecific abnormal finding of lung field (principal); E04.1 Nontoxic single thyroid nodule; K44.9 Diaphragmatic hernia without obstruction or gangrene
CPT/HCPCS: 71250

== ENCOUNTER → 2023-02-07 16:16 | Outpatient (CLI) | payer BC, SELFPAY ==
--- NOTE | 2023-02-07 | DI.US.S_ITS ---
PROCEDURE: US THYROID INDICATIONS: THYROID NODULE TECHNIQUE: Real-time scanning was performed of the thyroid gland, with image documentation. COMPARISON: None available at time of interpretation. FINDINGS: Right: Thyroid lobe measures 4.4 x 2.0 x 2.1 cm, and is heterogeneous in echotexture. Left: Thyroid lobe measures 3.3 x 1.3 x 1.2 cm, and is heterogeneous in echotexture. Isthmus: 7.0 mm thick. Nodule number: 1 Location: Right Size: 1.7 cm. Composition: Predominantly solid Echogenicity: Hypoechoic Shape: wider than tall. Margins: Smooth Echogenic foci: Internal punctate echogenic foci Total points: 7 ACR TI-RADS category: Highly suspicious Nodule number: 2 Location: Left inferior Size: 1.2 cm. Composition: Solid Echogenicity: Hypoechoic Shape: wider than tall. Margins: Smooth Echogenic foci: Macrocalcification Total points: 6 ACR TI-RADS category: Moderately suspicious Nodule number: 3 Location: Left mid Size: 0.5 cm. Composition: Colloid cyst IMPRESSION: Bilateral thyroid nodules as above. Recommend sonographically directed fine-needle aspiration involving the right #1 nodule. ACR TI-RADS definitions and recommendations: TI-RADS 1 (benign): 0 points. FNA not needed. TI-RADS 2 (not suspicious): 2 points. FNA not needed. TI-RADS 3 (mildly suspicious): 3 points. * FNA if 2.5 cm or larger, follow up if 1.5 cm or larger (at 1, 3, and 5 years). TI-RADS 4 (moderately suspicious): 4-6 points. * FNA if 1.5 cm or larger, follow up if 1 cm or larger (at 1, 2, 3, and 5 years). TI-RADS 5 (highly suspicious): 7 points or more. * FNA if 1 cm or larger, follow up if 0.5 cm or larger (every year for 5 years). Dictated by: Nirav RAO Interpreted: Rigo Watkins MD on 02/07/2023 at 20:46 Transcribed by: TAYLER on 02/07/2023 at 20:49 Approved by: Rigo Watkins M.D. on 02/18/2023 at 17:45
== END ==
PROVIDERS: PCP Physician Assistant; Referring Provider Physician Assistant; Visit Provider Physician Assistant
DX: E04.2 Nontoxic multinodular goiter (principal)
CPT/HCPCS: 76536

== ENCOUNTER → 2024-01-22 15:43 | Outpatient (CLI) | payer BC, SELFPAY ==
--- NOTE | 2024-01-22 15:44 | DI.CT.S_ITS ---
PROCEDURE: CT CHEST WO CON INDICATIONS: LUNG NODULES TECHNIQUE: Noncontrast 5 mm thick sections acquired from the pulmonary apices to the posterior costophrenic angles. 1 mm lung window, 5 mm thick coronal and sagittal and 7 mm axial MIP reformats were then acquired. For radiation dose reduction, the following was used: automated exposure control, adjustment of mA and/or kV according to patient size. COMPARISON: [facility], CT, CT CHEST WO CON, 12/26/2022, 14:19. FINDINGS: Image quality: Diagnostic. Lower Neck: No enlarged lymph nodes. Thyroid: Stable right thyroid nodule which has been previously evaluated with ultrasound. Axillae: No enlarged lymph nodes. Chest Wall: Unremarkable. Bones: Unremarkable. Lungs and Pleura: No pneumothorax or pleural effusions. Stable solid pulmonary nodules. Examples include: -stable 8 x 7 mm solid nodule, right middle lobe (series 3, image 176). -stable 5 mm solid nodule, right lower lobe (series 3, image 107). -stable 5 mm solid nodule, left lower lobe (series 3, image 141). Heart: Heart size is normal. No pericardial effusion. Thoracic Vessels: The aorta and pulmonary arteries demonstrate normal size. Mediastinum and Maria L: No enlarged lymph nodes. Esophagus: No wall thickening. No hiatal hernia. Upper Abdomen: Visualized upper abdomen solid organs and bowel loops appear normal. IMPRESSION: Stable solid pulmonary nodules, which are likely statistically benign given stability since 2021. Dictated by: Genaro Nugent M.D. on 01/22/2024 at 17:33 Approved by: Genaro Nugent M.D. on 01/22/2024 at 17:37
== END ==
PROVIDERS: PCP Physician Assistant; Referring Provider Physician Assistant; Visit Provider Physician Assistant
DX: R91.8 Other nonspecific abnormal finding of lung field (principal)
CPT/HCPCS: 71250

== ENCOUNTER → 2024-07-22 16:16 | Outpatient (CLI) | payer BC, SELFPAY ==
--- NOTE | 2024-07-22 16:17 | DI.US.S_ITS ---
PROCEDURE: US THYROID INDICATIONS: MULTIPLE THYROID NODULES TECHNIQUE: Real-time scanning was performed of the thyroid gland, with image documentation. COMPARISON: [facility], [place], US THYROID, 02/07/2023, 16:43. FINDINGS: Thyroid: Right lobe measures 4.3 x 2.4 x 2.1 cm. Left lobe measures 3.5 x 1.2 x 1.1 cm. Isthmus is 0.9 cm thick. Echotexture is mildly heterogeneous. There are several tiny widely scattered colloid cysts. There is coarse calcification in the left inferior pole. Nodule number: 1, previously undergone fine needle aspiration. Location: Right deep midpole Size: 1.4 x 0.9 x 1.1 cm, previously 1.7 x 1.1 x 1.4 cm. Composition: Predominantly solid Echogenicity: Hypoechoic Shape: wider than tall. Margins: Smooth Echogenic foci: Punctate and many with comet tail artifact Total points: Seven ACR TI-RADS category: Five Nodule number: 2 Location: Left inferior pole Size: 1.4 x 0.7 x 0.9 cm, previously 1.2 x 0.7 x 1.1 cm. Composition: Predominantly solid Echogenicity: Isoechoic Shape: wider than tall. Margins: Smooth Echogenic foci: Macro calcifications Total points: Five ACR TI-RADS category: Four IMPRESSION: Small stable nodules in each thyroid lobe, the right has recently undergone FNA. Correlate with results. Follow-up in one year recommended. ACR TI-RADS definitions and recommendations: TI-RADS 1 (benign): 0 points. FNA not needed. TI-RADS 2 (not suspicious): 2 points. FNA not needed. TI-RADS 3: 3 points. * FNA if 2.5 cm or larger, follow up if 1.5 cm or larger (at 1, 3, and 5 years). TI-RADS 4: 4-6 points. * FNA if 1.5 cm or larger, follow up if 1 cm or larger (at 1, 2, 3, and 5 years). TI-RADS 5: 7 points or more. * FNA if 1 cm or larger, follow up if 0.5 cm or larger (every year for 5 years). Dictated by: Joann Pimentel M.D. on 07/24/2024 at 9:01 Approved by: Joann Pimentel M.D. on 07/24/2024 at 9:09
== END ==
LOC: US 16:16
PROVIDERS: PCP Physician Assistant; Referring Provider Internal Medicine Endocrinology, Diabetes & Metabolism; Visit Provider Internal Medicine Endocrinology, Diabetes & Metabolism
DX: E04.2 Nontoxic multinodular goiter (principal)
CPT/HCPCS: 76536